=== PATIENT | male | born 1950 | race American Indian/Alaskan Native ===

== ENCOUNTER 2018-06-28 19:22 | Emergency (ER) | payer MEDICARE, OTHER ==
[2018-06-28 19:55] VITALS: BP 127/80
--- NOTE | 2018-06-28 19:56 | Emergency Department Report ---
Blank Doc - Documentation Documentation: 68 y.o. male presents with right knee pain. Patient states he had a total knee replacement in 2017 and reports a pulling sensation as if hardware is coming apart. Reports a popping sensation and numbness above patella. XR of right knee ordered [facility] for evaluation
--- NOTE | 2018-06-28 20:58 | XRay Report ---
FINAL REPORT PROCEDURE: XR KNEE 3V RT TECHNIQUE: Right knee, three views HISTORY: right knee pain COMPARISON: No prior studies are available for comparison. FINDINGS: There has been prior right knee arthroplasty. Hardware is in the expected position. No fracture or di slocation is seen of the [place] bone. IMPRESSION: No acute fracture or dislocation is seen
== END 2018-06-28 23:35 | disposition left against medical advice (07) ==
LOC: ED 19:22
DX: M25.561 Pain in right knee (principal)
CPT/HCPCS: 99283